=== PATIENT | female | born 1975 | race Caucasian/White ===

== ENCOUNTER 2019-03-01 13:15 | Emergency (ER) | payer OTHER, MEDICAID ==
[~2019-03-01] VITALS: Ht 157.5 cm; Wt 53.0 kg
[~2019-03-01 13:15] MED LIST: NO HOME MEDS
--- NOTE | 2019-03-01 14:48 | NUR ---
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
[2019-03-01] MEDS ORDERED: normal saline 1000ml 1,000 ML IV ONE ×2 (15:25→15:50)
[2019-03-01 15:49] LABS: CLARITY,URINE SLIGHTLY CLOUDY (Clear); COLOR,URINE YELLOW (Yellow); GLUCOSE, URINE NEGATIVE (Neg); KETONES,URINE NEGATIVE (Neg); LEUKOCYTE ESTERASE ,URINE TRACE (Neg); NITRITES, URINE NEGATIVE (Neg); OCCULT BLOOD,URINE SMALL (Neg); PROTEIN,URINE NEGATIVE (Neg); UROBILINOGEN,URINE 0.2 E.U/dL (0.2-1.0)
[2019-03-01 15:50] LABS: URINE HCG NEGATIVE (NEG)
[2019-03-01 15:53] LABS: BASOPHILS % (AUTO) 0.3 % (0-1); EOSINOPHILS % (AUTO) 0.1 % (0-6); HEMATOCRIT 40.7 % (35.0-45.0); HEMOGLOBIN 13.5 g/dl (12.0-16.0); LYMPHOCYTES # (AUTO) 1.4 X10'3 (1.1-4.8); LYMPHOCYTES % (AUTO) 12.6 % (21-51); MEAN CORPUSCULAR HEMOGLOBIN 27.1 PG (27.0-31.0); MEAN CORPUSCULAR HGB CONC 33.1 g/dL (33.0-36.5); MEAN CORPUSCULAR VOLUME 81.9 FL (78-98); MEAN PLATELET VOLUME 7.1 FL (7.4-10.4); MONOCYTES # (AUTO) 0.5 X10'3 (0-0.9); MONOCYTES % (AUTO) 4.7 % (2-12); NEUTROPHILS % (AUTO) 82.3 % (42-75); PLATELET COUNT 376 X10'3 (140-440); RED BLOOD COUNT 4.96 X10'6 (4.20-5.60); RED CELL DISTRIBUTION WIDTH 13.8 % (11.5-14.5); WHITE BLOOD COUNT 10.9 X10'3 (4.5-11.0)
[2019-03-01 15:54] LABS: UA COLLECTION TYPE CLN CATCH MIDSTREAM
[2019-03-01 15:55] LABS: BACTERIA,URINE FEW /HPF (Neg); MUCUS STRANDS FEW /LPF (Neg); RBC,URINE 0-2 /HPF (0-2); SQUAMOUS EPITHELIAL CELL,UR FEW /LPF (FEW)
[2019-03-01 16:15] LABS: ALANINE AMINOTRANSFERASE 21 U/L (12-78); ALBUMIN 4.1 G/DL (3.4-5.0); ALBUMIN/GLOBULIN RATIO 0.8 (1.1-1.5); ALKALINE PHOSPHATASE 52 IU/L (46-116); ANION GAP 6 (8-16); BILIRUBIN,TOTAL 0.4 MG/DL (0.1-1.0); BLOOD UREA NITROGEN 9 MG/DL (7-18); BUN/CREATININE RATIO 10.2 (6.6-38.0); CALCIUM 8.6 MG/DL (8.5-10.1); CHLORIDE 106 MMOL/L (99-107); CREATININE 0.88 MG/DL (0.40-0.90); GLUCOSE 91 MG/DL (70-104); SODIUM 138 MMOL/L (135-145); TOTAL CARBON DIOXIDE 26.5 MMOL/L (24-32); eGFR 69 ML/MIN
[2019-03-01 16:17] LABS: MAGNESIUM 2.2 MG/DL (1.5-2.4); POTASSIUM 5.3 MMOL/L (3.5-5.1)
[2019-03-01 16:18] LABS: ASPARTATE AMINO TRANSFERASE 34 U/L (10-37)
[2019-03-01] MEDS ORDERED: tetanus & diphtheria toxoid (Td) vaccine 0.5ml IMVAC ONE (16:40)
[2019-03-01] MEDS ORDERED: TETanus/Pertussis (Acell)/Diphther VAC/PF (Tdap-Adult) 0.5ml syringe IMVAC ONE (16:45)
[2019-03-01 16:55] VITALS: BP 116/69
[2019-03-01] MEDS ORDERED: LIDOcaine 1% 30ml preserv. free vial SQ STA (17:00)
[2019-03-01] MEDS ORDERED: amox tr/potassium clavulanate 500mg/125mg TAB PO STA (17:11)
[2019-03-01] MEDS ORDERED: AMOX-419 PO (17:22)
== END 2019-03-01 17:36 | disposition home or self-care (01) ==
LOC: ER 13:16
DX: S01.511A Laceration without foreign body of lip, initial encounter (principal); R55 Syncope and collapse; R42 Dizziness and giddiness; Z87.442 Personal history of urinary calculi; Z98.890 Other specified postprocedural states; Z88.2 Allergy status to sulfonamides; Z88.6 Allergy status to analgesic agent; Z88.8 Allergy status to other drugs, medicaments and biological substances; Z79.899 Other long term (current) drug therapy; W01.0XXA Fall on same level from slipping, tripping and stumbling without subsequent striking against object, initial encounter; Y93.89 Activity, other specified; Y92.89 Other specified places as the place of occurrence of the external cause; Y99.8 Other external cause status
CPT/HCPCS: 12051; 36415; 80053; 81001; 81025; 83735; 84484; 85025; 87088; 90471; 90715; 96360; 99284; J7030; 12011

== ENCOUNTER 2019-03-11 08:56 | Emergency (ER) | payer OTHER, MEDICAID | END 2019-03-11 10:08 | disposition left against medical advice (07) | LOC: ER 08:57 | DX: S01.511D Laceration without foreign body of lip, subsequent encounter (principal); Z53.21 Procedure and treatment not carried out due to patient leaving prior to being seen by health care provider; W01.0XXD Fall on same level from slipping, tripping and stumbling without subsequent striking against object, subsequent encounter ==